=== PATIENT | male | born 1955 | race Caucasian/White ===

== ENCOUNTER 2017-01-12 06:37 | Inpatient (IN) ==
--- NOTE | 2017-01-11 21:31 | Discharge Summary ---
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 Qualified Code(s): E11.9 - Type 2 diabetes mellitus without complications (4) HTN (hypertension) Priority: Secondary Status: Chronic Qualifiers: Hypertension type: essential hypertension Qualified Code(s): I10 - Essential (primary) hypertension (5) BPH (benign prostatic hyperplasia) Priority: Secondary Status: Chronic Qualifiers: Lower urinary tract symptom presence: unspecified whether lower urinary tract symptoms present Qualified Code(s): N40.0 - Benign prostatic hyperplasia without lower urinary tract symptoms - Discharge Medications Home Medications: OxyCODONE Immed Rel [Roxicodone 5 MG] 5 - 10 mg PO Q6HR PRN #40 tablet 01/11/17 [Rx] Acyclovir [Zovirax] 200 mg PO BID 01/12/17 [History] Amlodipine Besylate 10 mg PO DAILY 01/12/17 [History] Atenolol [Tenormin] 50 mg PO HS 01/12/17 [History] Etodolac 400 mg PO BID 01/12/17 [History] Gabapentin [Neurontin] 300 mg PO TID 01/12/17 [History] GlipiZIDE [Glipizide Xl] 5 mg PO DAILY 01/12/17 [History] Metformin HCl [Glucophage] 1,000 mg PO BID 01/12/17 [History] Multivitamin [Multi-Day Vitamins] 2 tab PO DAILY 01/12/17 [History] Omeprazole [PriLOSEC] 20 mg PO DAILY 01/12/17 [History] Oxybutynin Chloride [Ditropan Xl] 10 mg PO HS 01/12/17 [History] Valsartan/Hydrochlorothiazide [Diovan Hct 160-25 mg Tablet] 1 tab PO DAILY 01/12 [History] Allergies/Adverse Reactions: 3 Allergy/AdvReac Type Severity Reaction Status Date / Time No Known Allergies Allergy Verified 01/12/17 07:35 Primary care physician: Steve Ruiz Jr, MD - Patient Status Disposition: Home, Self-Care Condition: Good - Discharge Instructions Follow Up With: Steve Ruiz Jr, MD [Primary Care Provider] - - Hospital Course Hospital course: Mr. Marx is a 61 year old male - Time Spent with Patient Total time spent providing and/or coordinating discharge services: <SlaughterJohan - Last Filed: 01/13/17 06:50> Date of Encounter: 01/13/17 Time of Encounter: 06:49 - Discharge Diagnosis (1) Obesity (BMI 35.0-39.9 without comorbidity) Priority: Secondary Status: Chronic (2) Rotator cuff tear arthropathy of right shoulder Priority: Primary Status: Chronic (3) Status post total replacement of right shoulder Priority: Primary Status: Acute (4) DMII (diabetes mellitus, type 2) Status: Chronic Qualifiers: Diabetes mellitus complication status: without complication Diabetes mellitus half-way insulin use: without half-way use Qualified Code(s): E11.9 - Type 2 diabetes mellitus without complications (5) HTN (hypertension) Status: Chronic Qualifiers: Hypertension type: essential hypertension Qualified Code(s): I10 - Essential (primary) hypertension (6) BPH (benign prostatic hyperplasia) Status: Chronic Qualifiers: Lower urinary tract symptom presence: unspecified whether lower urinary tract symptoms present Qualified Code(s): N40.0 - Benign prostatic hyperplasia without lower urinary tract symptoms Primary care physician: Steve Ruiz Jr, MD - Patient Status Functional capacity at discharge: uses cane/walker Overall status at discharge: patient is progressing back to baseline - Hospital Course Hospital course: Mr. Marx is a 61 year old male Status post right total shoulder replacement. The patient had an uneventful postoperative course. They received antibiotics and physical therapy and were discharged in stable condition. There will follow -up in the office in 2 weeks. - Time Spent with Patient Total time spent providing and/or coordinating discharge services:
--- NOTE | 2017-01-12 06:15 | History & Physical Report ---
Date of Encounter: 01/12/17 Time of Encounter: 06:15 24 Hour HP Update - Instructions Instructions: If the History and Physical is less than 30 days old and was completed prior to A.M. admission and or procedure and has NOT been updated on calendar day of procedure please complete this update prior to performing procedure. - Update Patient reports changes in Medical Condition: No Changes in examination, assessment, or condition: No Changes in Medication: No Preop tests/diagnostics Reviewed: Yes Surgery Remains Indicated: Yes Consent for Planned Operative Procedure(s) Verified: Yes - Pre-Operative Checklist Preoperative Checklist Indicated: No Prophylactic Antibiotic Ordered: Yes Is VTE Prophylaxis Indicated?: Yes
[2017-01-12] MEDS ORDERED: Lidocaine -MPF 1% 2 ML VIAL ONE (06:51)
--- NOTE | 2017-01-12 07:02 | Anesthesia Evaluation PreOp ---
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: Denies Any Significant HX Other Medical History: Diabetes Type II, GERD Anesthesia History: No Prior Anesthetic Complications, Past Anesthesia (CTR, RCR , Bicep repair, Skin CA) Alcohol Use: none Drug use: none Medications and Allergies Acyclovir 08/09/16 [History] Alfuzosin HCl 08/09/16 [History] Amlodipine 08/09/16 [History] Amoxicillin 875 mg PO BID #20 tablet 08/09/16 [Rx] Atenolol 08/09/16 [History] Benzonatate [Tessalon] 200 mg PO TID PRN #20 capsule 08/09/16 [Rx] Fluticasone Propionate Nasal [Flonase] 2 spray NS DAILY #1 bottle 08/09/16 [Rx] Glipizide 08/09/16 [History] Glucosamine 08/09/16 [History] Omeprazole 08/09/16 [History] Oxybutynin 08/09/16 [History] Valsartan 08/09/16 [History] OxyCODONE Immed Rel [Roxicodone 5 MG] 5 - 10 mg PO Q6HR PRN #40 tablet 01/11/17 [Rx] 3 Allergy/AdvReac Type Severity Reaction Status Date / Time No Known Allergies Allergy Verified 01/12/17 07:35 - Meds/Allergy Pre-op Review Medications Reviewed: Yes Allergies Reviewed: Yes Beta Blockers on Current Med List: Yes If Beta Blockers taken, Date/Time (Last Dose taken): 01/11/2017 @ 22:30 Anesthesia Results - Labs Laboratory Tests 01/05/17 01/05/17 01/05/17 16:44 16:44 16:44 WBC 10.8 Hgb 15.5 Hct 47.6 MCV 85.9 Plt Count 217 INR 1.0 Sodium 144 Potassium 3.7 Chloride 104 Carbon Dioxide 27 BUN 18 Creatinine 0.82 - Imaging EKG: image reviewed (SINUS RHYTHM WITH OCCASIONAL VENTRICULAR PREMATURE COMPLEXES) Anesthesia Exam O2 Sat Height 1.65 m Height 1.65 m Height 1.65 m Weight 99.79 kg Weight 99.79 kg Weight 99.79 kg O2 Sat by Pulse Oximetry 93 O2 Sat by Pulse Oximetry 93 Vital Signs Temp Pulse Resp BP Pulse Ox 98.3 F 65 18 157/90 93 01/12/17 07:14 01/12/17 07:14 01/12/17 07:14 01/12/17 07:14 01/12/17 07:14 Height: 5'5'' Weight: 220# NPO (# of Hours): > 8 hrs Pain Scale: 0 Pain Scale Used: Numeric (1 - 10) - HEENT Pupil (Motor): Pupils equal, EOMI Mallampati: III Teeth: Normal Oral Opening: Greater than 3 - TOY ASSEMBLY SUPERVISOR LOC: Oriented TOY ASSEMBLY SUPERVISOR Motor: Normal RUE, Normal LUE, Normal RLE, Normal LLE, Normal Face TOY ASSEMBLY SUPERVISOR Sensory: Normal: RUE, LUE, RLE, LLE, Face - Cardiac Rhythm: Regular Murmur: None JVD: No Carotid Bruit: No - Pulmonary Breath Sounds: bilateral Clear Respiratory Effort: Symmetrical Anesthesia Assess/Plan ASA Score: 3 Modified Deepa Scale for Level of Consciousness: Cooperative, oriented, and tranquil Anesthetic Plan: General, Regional (Right Brachial Plexus Block) Autologous Blood: Yes Monitoring Plan: Standard Monitors Recovery Plan: PACU
[2017-01-12] MEDS ORDERED: CeFAZolin Pre 2,000 MG/100 ML 2,000 MG/100 ML BAG IVPB ONE (07:10)
[2017-01-12] MEDS ORDERED: Ringers Solution, Lactated 1,000 ML IVC SCH ×3 (07:15→09:43)
[2017-01-12] MEDS ORDERED: Lidocaine -MPF 2% 2 ML VIAL ONE (07:17)
[2017-01-12] MEDS ORDERED: *HR* Midazolam HCl 2 MG/2 ML VIAL ONE (07:17)
[2017-01-12] MEDS ORDERED: Dexamethasone 4 MG/ML VIAL ONE (07:17)
[2017-01-12] MEDS ORDERED: *HR* Succinylcholine 200 MG/10 ML VIAL IVP ONE (07:17)
[2017-01-12] MEDS ORDERED: Ondansetron 4 MG/2 ML VIAL ONE (07:17)
[2017-01-12] MEDS ORDERED: *HR* FentaNYL (PF) 100 MCG/2 ML VIAL ONE (07:17)
[2017-01-12] MEDS ORDERED: *HR* Propofol 200 MG/20 ML VIAL IVP ONE (07:18)
[2017-01-12] MEDS ORDERED: Lidocaine -MPF 4% 5 ML AMPUL ONE (07:22)
[2017-01-12] MEDS ORDERED: ROPIVACAINE HCL/PF 0.5% 30 ML VIAL ONE (07:26)
[2017-01-12] MEDS ORDERED: Bupivacaine/Clonidine Syringe 1 EACH SYRINGE ONE (07:27)
[2017-01-12] MEDS ORDERED: *HR* HYDROmorphone (PF) 1 MG/ML SYRINGE IVP PRN ×2 (07:56→09:43)
[2017-01-12] MEDS ORDERED: Ondansetron 4 MG/2 ML VIAL IVP ONE (07:56)
[2017-01-12] MEDS ORDERED: *HR* Labetalol 20 MG/4 ML SYRINGE IVP PRN (07:56)
[2017-01-12] MEDS ORDERED: *HR* Promethazine 25 MG/ML VIAL IVP PRN (07:56)
--- NOTE | 2017-01-12 08:02 | Anesthesia Procedures ---
Date of Encounter: 01/12/17 Time of Encounter: 07:35 Procedures: Anesthesia - Nerve Block Procedure Date: 01/12/17 Time: 07:35 Allergies/Adv Reactions: NKA Pre-op Diagnosis: Right rotator cuff arthropathy Surgical Procedure: Right total shoulder replacement, reverse Checklist: Correct Patient Identifier (pl), Correct procedure, History checked Correct side: Right Blood Thinner: No Monitor Applied: EKG, BP, Pulse Oximetry Supplemental Oxygen via Nasal Cannula (L/min): 2 Sedation: Versed (mg): 2 Sedation: Fentanyl (mcg): 100 Indication: Post Op Analgesia Pre-op Neuro Deficits: No Block Type: Infraclavicular, Supraclavicular, Other (SCP, ICB) Catheter placed: No Sterile Technique: Yes Ultrasound used: Yes Anatomy identified: Yes Visual spread of Local: Yes Neuro Stimulation: No Blood on Needle Aspiration: No Smooth Injection of Local: Yes Pain with Injection of Local: No Prep: Chlorhexadine Needle: 22 x 50 mm Stimuplex Local: 0.25% Bupivicaine w/Clonidine 20 mcg/cc (SCP, ICB 15ml), Ropivacaine (0.5 % 30ml superclavicular) Volume (cc): 45 Number of Attempts: 1 Complications: None/effective block Vitals: Vital Signs Temperature 98.3 F 01/12/17 07:14 Pulse Rate 65 01/12/17 07:14 Respiratory Rate 18 01/12/17 07:14 Blood Pressure 157/90 01/12/17 07:14 O2 Sat by Pulse Oximetry 93 01/12/17 07:14 Temperature 98.3 F 01/12/17 07:35 Pulse Rate 66 01/12/17 07:43 Respiratory Rate 16 01/12/17 07:43 Blood Pressure 146/78 01/12/17 07:43 O2 Sat by Pulse Oximetry 94 01/12/17 07:43
--- NOTE | 2017-01-12 08:24 | Orthopedic Operative Note ---
Date of procedure: 01/12/17 Pre-op diagnosis: Right shoulder rotator cuff tear arthropathy Post-op diagnosis: same Procedure: Procedure: Total Shoulder Replacment Reverse, right Estimated blood loss: 100 cc Hardware: Metal and polyethylene replacement: Arthrex large glenoid baseplate, 2 4.5 screws. 1 6.5 screw, 2+4 glenosphere, 11 humeral stem, poly insert 3 Exam Under anesthesia: Full motion and no stability Procedural Notes: Irreparable tear supraspinatus and subscapularis. Operative procedure: The patient was brought to the operating room and placed on the operating room table. After general anesthesia was administered the operative shoulder was examined. Findings were noted. The patient was placed in the modified beachchair position. All pressure points were padded appropriately. And the head was stabilized in the neutral position. The operative extremity was prepped and draped in the sterile surgical fashion. The patient received IV antibiotics prior to skin incision. A standard deltopectoral approach was made to the operative shoulder. Incision was made to the skin and subcutaneous tissue,hemo stasis was obtained with Bovie cautery. Using careful blunt dissection the cephalic vein was identified and mobilized medially. The deltopectoral interval was developed and the clavipectoral fascia was incised. The subscap was normal. The humerus was dislocated patient noted to have irreparable tear supraspinatus tendon, and the humeral cut was made along the anatomic neck. Anterior and posterior Bankart retractors were placed to expose the glenoid. The glenoid guide was seated and the centering hole was made. It was reamed with the appropriate reamer. The large baseplate was seated and secured with (2) 4.5 screws and one 6.5 screw. The baseplate was irrigated and dried and the 42+4 Glenosphere was seated and secured with the Sandra taper. The Sandra taper was tested and found to be secure the humerus was redislocated and prepared with the diaphyseal reamers, followed by a broaching process up to the appropriate size 11 in the patient's anatomic version. The metaphyseal reamer was then utilized. Trial reduction found the shoulder to be relocatable. Trial components were removed and the 11 stem was impacted in place in the patient's anatomic version. Trial reduction found the shoulder to be relocatable and stable with the appropriate 3. Trial component was removed and the real 3 Radha was seated and secured the shoulder was reduced. The shoulder had excellent motion and excellent stability and no evidence of dislocation. The deep tissue was irrigated with pulse irrigation. The PA closed the shoulder The deltopectoral interval was closed with a running #1 PDS suture, subcutaneous tissue was irrigated and closed with 0 PDS suture, the skin was closed with Dermabond. The patient was placed in a sterile dressing, abduction brace and extubated. The patient was then transferred to the recovery room in stable condition. Anesthesia: ZEYNEP Surgeon: Johan Slaughter Circulator: Lacey Casas Condition: stable Disposition: PACU
[2017-01-12 09:09] LABS: Hematocrit 44.5 % (37.5-50.1); Hemoglobin 14.1 g/dL (12.9-16.9)
--- NOTE | 2017-01-12 09:11 | Anesthesia Evaluation Post Op ---
Date of Encounter: 01/12/17 Time of Encounter: 09:11 - Vital Signs Vital Signs: Vital Signs/O2 Sat, Most Current Temp Pulse Resp BP Pulse Ox 97.4 F L 57 18 125/65 92 01/12/17 08:43 01/12/17 09:03 01/12/17 09:03 01/12/17 09:03 01/12/17 09:03 - Lungs Lungs: Clear Ascult./Percussion - Airway Airway: Non-obstructed - Cardiovascular Regular Rate - Mental Status Mental Status: Alert & Oriented, Answers Appropriately - Pain Pain Scale: 0 Pain Scale used: Numeric (1 - 10) - Nausea Vomiting Nausea Vomiting: Not Present - Hydration Hydration: NPO, Has not voided - Discharge PostOp Status: Transfer Patient to floor
[2017-01-12] MEDS ORDERED: Dextrose Gel 15 GM PO PRN ×2 (09:43)
[2017-01-12] MEDS ORDERED: ceFAZolin 2,000 MG in D5% in Water 100 ML IVPB SCH (09:43)
[2017-01-12] MEDS ORDERED: Sennosides 8.6 MG TABLET PO PRN (09:43)
[2017-01-12] MEDS ORDERED: D5% in Water 1,000 ML IVC PRN (09:43)
[2017-01-12] MEDS ORDERED: *HR* OxyCODONE Immed Rel 5 MG TABLET PO PRN ×2 (09:43)
[2017-01-12] MEDS ORDERED: *HR* Dextrose 50 % in Water (Syg) 50 ML SYRINGE IVP PRN (09:43)
[2017-01-12] MEDS ORDERED: Ondansetron 4 MG/2 ML VIAL IVP PRN (09:43)
[2017-01-12] MEDS ORDERED: MOM Conc 10 ML UD.LIQ PO PRN (09:43)
[2017-01-12] MEDS ORDERED: Naloxone 0.4 MG/ML INJ IVP PRN (09:43)
[2017-01-12] MEDS: Insulin LISPRO 300 UNITS/3 ML VIAL SQ SCH ×2 (13:24→16:52)
[2017-01-12] MEDS: amLODIPine 5 MG TABLET PO SCH (13:36)
[2017-01-12] MEDS: ceFAZolin 2,000 MG in D5% in Water 100 ML IVPB SCH ×2 (13:36→23:16)
[2017-01-12] MEDS: *HR* Metformin 500 MG TABLET PO SCH ×2 (13:38→20:16)
[2017-01-12] MEDS: *HR* GlipiZIDE XL (24 HR) 2.5 MG TABLET PO SCH (13:38)
[2017-01-12] MEDS: Valsartan 160 MG TABLET PO SCH (13:38)
[2017-01-12] MEDS: hydroCHLOROthiazide 25 MG TABLET PO SCH (13:38)
[2017-01-12] MEDS: Gabapentin 300 MG CAPSULE PO SCH ×3 (13:39→20:16)
[2017-01-12] MEDS: Multivit/Ca/Min/Fe/FA 1 TAB TABLET PO SCH (13:39)
[2017-01-12] MEDS: Acyclovir 200 MG CAPSULE PO SCH ×2 (15:52→20:16)
[2017-01-12] MEDS: *HR* Enoxaparin 30 MG/0.3 ML SYRINGE SQ SCH (16:53)
[2017-01-12] MEDS ORDERED: *HR* Enoxaparin 40 MG/0.4 ML SYRINGE SQ SCH (18:00)
[2017-01-12] MEDS ORDERED: Insulin LISPRO 300 UNITS/3 ML VIAL SQ SCH (21:00)
[2017-01-12] MEDS ORDERED: Temazepam 15 MG CAPSULE PO PRN (21:00)
[2017-01-13] MEDS: *HR* Enoxaparin 30 MG/0.3 ML SYRINGE SQ SCH (05:33)
--- NOTE | 2017-01-13 06:50 | Orthopedics Progress Note ---
Date of Encounter: 01/13/17 Time of Encounter: 06:50 - Assessment and Plan (1) Obesity (BMI 35.0-39.9 without comorbidity) Current Visit: Yes Status: Chronic (2) Rotator cuff tear arthropathy of right shoulder Current Visit: Yes Status: Chronic (3) Status post total replacement of right shoulder Current Visit: Yes Status: Acute (4) DMII (diabetes mellitus, type 2) Current Visit: Yes Status: Chronic Qualifiers: Diabetes mellitus complication status: without complication Diabetes mellitus intermediate accountant insulin use: without custodial use Qualified Code(s): E11.9 - Type 2 diabetes mellitus without complications (5) HTN (hypertension) Current Visit: Yes Status: Chronic Qualifiers: Hypertension type: essential hypertension Qualified Code(s): I10 - Essential (primary) hypertension (6) BPH (benign prostatic hyperplasia) Current Visit: Yes Status: Chronic Qualifiers: Lower urinary tract symptom presence: unspecified whether lower urinary tract symptoms present Qualified Code(s): N40.0 - Benign prostatic hyperplasia without lower urinary tract symptoms Subjective Interval history: Patient was seen this morning doing well without complaints. Afebrile vital signs stable. Operative extremity: Neurovascularly intact Dressing clean dry and intact Calves nontender Assessment and plan: Continue with postoperative care Hematocrit 44 discharged today Objective Vital signs: Vital Signs Temp Pulse Resp BP Pulse Ox 01/13/17 04:02 97.8 F 70 16 147/76 96 01/12/17 23:57 98.5 F 70 16 107/63 96 01/12/17 20:11 99.4 F 94 18 151/70 95 01/12/17 13:20 98.8 F 79 16 125/71 922 01/12/17 11:45 98.5 F 56 16 156/77 91 01/12/17 10:40 97.9 F 59 16 126/66 91 01/12/17 10:16 98.1 F 57 18 122/66 92 01/12/17 09:47 97.7 F 56 16 122/72 91 01/12/17 09:13 97.2 F L 59 20 128/70 92 01/12/17 09:03 57 18 125/65 92 01/12/17 08:53 55 20 101/70 96 01/12/17 08:43 97.4 F L 66 20 111/71 93 01/12/17 07:43 66 16 146/78 94 01/12/17 07:37 62 16 157/87 96 01/12/17 07:35 98.3 F 65 18 157/90 93 01/12/17 07:14 98.3 F 65 18 157/90 93 Intake and Output 01/12/17 01/12/17 01/13/17 15:59 23:59 07:59 Intake Total 200 / 200 360 / 360 200 / 200 Output Total 100 / 100 150 / 150 Balance 100 / 100 210 / 210 200 / 200 Intake: IV Fluids 200 / 200 100 / 100 Ancef Premix 2,000 MG/100 100 / 100 ML 2,000 mg In 100 ml @ 200 mls/hr IVPB PREOP ONE Rx#:[id number] Ancef 2,000 MG In 100 / 100 100 / 100 Dextrose 5% 100 ML @ 200 mls/hr IVPB Q8HR JIL Rx#: [id number] Oral 360 / 360 100 / 100 Output: Urine 150 / 150 Estimated Blood Loss 100 / 100 Other: Meal Dinner Percent of Meal Consumed 100% # Voids 1 1 Weight 101.05 kg Blood Glucose* 235 252 Patient Weight 01/13/17 23:59 Weight 101.05 kg - Labs CBC & BMP: 01/12/17 08:58 Labs: Abnormal lab results POC Glucose 235 (58-89) H 01/12/17 13:16 - VTE Documentation of Mechanical Device: Venous foot pump, device Consult Discharge Plan - Plan Referrals: Steve Ruiz Jr, MD [Primary Care Provider] -
[2017-01-13 08:11] LABS: Hematocrit 44.7 % (37.5-50.1)
[2017-01-13] MEDS: amLODIPine 5 MG TABLET PO SCH (08:17)
[2017-01-13] MEDS: *HR* GlipiZIDE XL (24 HR) 2.5 MG TABLET PO SCH (08:18)
[2017-01-13] MEDS: Multivit/Ca/Min/Fe/FA 1 TAB TABLET PO SCH (08:18)
[2017-01-13] MEDS: hydroCHLOROthiazide 25 MG TABLET PO SCH (08:18)
[2017-01-13] MEDS: *HR* Metformin 500 MG TABLET PO SCH (08:18)
[2017-01-13] MEDS: Acyclovir 200 MG CAPSULE PO SCH (08:18)
[2017-01-13] MEDS: Insulin LISPRO 300 UNITS/3 ML VIAL SQ SCH (08:19)
[2017-01-13] MEDS: Gabapentin 300 MG CAPSULE PO SCH (08:21)
[2017-01-13] MEDS: Valsartan 160 MG TABLET PO SCH (08:21)
[2017-01-13 12:23] VITALS: BP 151/68
--- NOTE | 2017-01-13 12:26 | Event Note ---
Date of Encounter: 01/13/17 Time of Encounter: 12:25 PCR - Right TSR-reverse - 01/12/17 POD#1 Patient seen at bedside. Comorbidities: HTN, DMII, BPH Labs: Stable Pain control: adequate Participating in PT. All questions and concerns addressed. Educated on use of incentive spirometer, ambulation, and hydration. Patient educated on post-operative restrictions and care. Addressed: Discharge plans D/C plan:. Home 01/13 OP
== END 2017-01-13 13:48 | disposition home or self-care (01) | DRG 483 ==
LOC: SAMDAY 06:37 → 3NENU 09:19
PROVIDERS: ADMIT Orthopaedic Surgery; ATTEND Orthopaedic Surgery

== ENCOUNTER 2019-02-28 18:48 | Observation (INO) ==
[2019-02-28 21:08] LABS: Basophils # 0.1 K/mcL (0.0-0.2); Eosinophils # 0.3 K/mcL (0.0-0.6); Eosinophils % 2.7 %; Hematocrit 44.9 % (37.5-50.1); Hemoglobin 14.9 g/dL (12.9-16.9); Immature Granulocytes % 0.3 % (0-4); Lymphocytes # 2.7 K/mcL (0.6-4.6); Lymphocytes % 25.8 %; Mean Corpuscular HGB Conc 33.2 g/dL (31.6-35.5); Mean Corpuscular Hemoglobin 28.5 pg (28.0-33.3); Mean Platelet Volume 11.5 fL (9.4-12.4); Monocytes # 1.1 K/mcL (0.0-1.3); Monocytes % 10.1 %; Neutrophils # 6.3 K/mcL (1.6-8.9); Platelet Count 264 K/mcL (140-400); Red Blood Count 5.22 M/mcL (4.19-5.50); Red Cell Distribution Width 15.3 % (11.5-14.5); Segmented Neutrophils % 60.1 %; White Blood Count 10.4 K/mcL (4.3-11.1)
[2019-02-28 21:11] LABS: Prothrombin Time 11.7 Seconds (9.4-12.1)
[2019-02-28 21:13] LABS: Activated Partial Thrombo Time 31.5 Seconds (26.0-36.0)
[2019-02-28 21:25] LABS: BUN/Creatinine Ratio 16 (6-26); Blood Urea Nitrogen 14 mg/dL (8-23); Calcium 9.3 mg/dL (8.6-10.3); Carbon Dioxide 26 mEq/L (23-29); Chloride 106 mEq/L (98-107); Glucose 98 mg/dL (70-105); Osmolality,Calculated 298 (280-300); Potassium 3.5 mEq/L (3.5-5.1); Sodium 144 mEq/L (136-145); eGFR For African Americans > 60 (> 60); eGFR For Non-African Americans > 60 (> 60)
[2019-02-28 21:31] LABS: Troponin I 0.04 ng/mL (< 0.04)
[2019-02-28] MEDS ORDERED: Aspirin 81 MG TAB.CHEW PO STA (21:43)
[2019-02-28] MEDS ORDERED: Isovue-370 500 ML BOTTLE IVP ONE (21:53)
[2019-02-28] MEDS ORDERED: Nitroglycerin 0.4 MG TAB.SUBL SL PRN (21:53)
[2019-02-28] MEDS ORDERED: *HR* Heparin 5,000 UNIT/ML VIAL IVP PRN ×2 (22:53)
[2019-02-28] MEDS ORDERED: *HR* Heparin 5,000 UNIT/ML VIAL IVP ONE (22:53)
[2019-02-28] MEDS ORDERED: Heparin 25,000 UNIT/250 ML D5W 25,000 UNIT/250 ML IV.SOLN IVC SCH (23:00)
[2019-02-28 23:16] LABS: Hematocrit 45.7 % (37.5-50.1); Hemoglobin 14.9 g/dL (12.9-16.9); Mean Corpuscular HGB Conc 32.6 g/dL (31.6-35.5); Mean Corpuscular Hemoglobin 28.1 pg (28.0-33.3); Mean Corpuscular Volume 86.2 fL (83.0-100.0); Mean Platelet Volume 10.9 fL (9.4-12.4); Platelet Count 259 K/mcL (140-400); Red Cell Distribution Width 15.3 % (11.5-14.5); White Blood Count 10.7 K/mcL (4.3-11.1)
[2019-02-28 23:25] LABS: Prothrombin Time 11.8 Seconds (9.4-12.1)
[2019-03-01] MEDS ORDERED: Naloxone 0.4 MG/ML INJ IVP PRN (03:10)
[2019-03-01] MEDS ORDERED: D5% in Water 1,000 ML IVC PRN (03:13)
[2019-03-01] MEDS ORDERED: *HR* Dextrose 50 % in Water (Syg) 50 ML SYRINGE IVP PRN (03:13)
[2019-03-01] MEDS ORDERED: Dextrose Gel 15 GM/37.5 ML TUBE PO PRN ×2 (03:13)
[2019-03-01] MEDS: Insulin LISPRO 300 UNITS/3 ML VIAL SQ SCH ×3 (05:47→18:22)
[2019-03-01 08:12] LABS: Hemoglobin 15.1 g/dL (12.9-16.9); Mean Corpuscular HGB Conc 32.8 g/dL (31.6-35.5); Mean Corpuscular Hemoglobin 28.9 pg (28.0-33.3); Mean Corpuscular Volume 88.1 fL (83.0-100.0); Mean Platelet Volume 11.3 fL (9.4-12.4); Platelet Count 244 K/mcL (140-400); Red Blood Count 5.22 M/mcL (4.19-5.50); Red Cell Distribution Width 15.3 % (11.5-14.5); White Blood Count 10.7 K/mcL (4.3-11.1)
[2019-03-01 08:37] LABS: BUN/Creatinine Ratio 13 (6-26); Blood Urea Nitrogen 11 mg/dL (8-23); Carbon Dioxide 29 mEq/L (23-29); Chloride 105 mEq/L (98-107); Glucose 115 mg/dL (70-105); Osmolality,Calculated 296 (280-300); Potassium 3.1 mEq/L (3.5-5.1); Sodium 143 mEq/L (136-145); eGFR For African Americans > 60 (> 60); eGFR For Non-African Americans > 60 (> 60)
[2019-03-01] MEDS ORDERED: Furosemide 20 MG TABLET PO PRN (11:54)
[2019-03-01] MEDS: amLODIPine 5 MG TABLET PO SCH (12:20)
[2019-03-01] MEDS: Aspirin Enteric Coated 81 MG Tablet PO SCH (12:20)
[2019-03-01] MEDS: Isosorbide MONOnitrate (24 HR) 30 MG TAB.ER.24H PO SCH (12:21)
[2019-03-01] MEDS ORDERED: Perflutren Lipid Microsphere 1.3 ML in 0.9 % Sodium Chloride 8.7 ML IVP ONE (13:32)
[2019-03-01] MEDS ORDERED: Perflutren Lipid Microsphere 2 ML VIAL ONE (13:34)
[2019-03-01] MEDS: Gabapentin 300 MG CAPSULE PO SCH (20:12)
[2019-03-02] MEDS ORDERED: Insulin LISPRO 300 UNITS/3 ML VIAL SQ SCH ×2 (00:39→07:30)
[2019-03-02] MEDS: Insulin LISPRO 300 UNITS/3 ML VIAL SQ SCH (00:41)
[2019-03-02 04:50] LABS: Hematocrit 45.4 % (37.5-50.1); Hemoglobin 14.5 g/dL (12.9-16.9); Mean Corpuscular HGB Conc 31.9 g/dL (31.6-35.5); Mean Corpuscular Hemoglobin 27.8 pg (28.0-33.3); Mean Corpuscular Volume 87.1 fL (83.0-100.0); Platelet Count 255 K/mcL (140-400); Red Blood Count 5.21 M/mcL (4.19-5.50); Red Cell Distribution Width 15.2 % (11.5-14.5); White Blood Count 10.9 K/mcL (4.3-11.1)
[2019-03-02 05:12] LABS: BUN/Creatinine Ratio 15 (6-26); Blood Urea Nitrogen 15 mg/dL (8-23); Calcium 8.9 mg/dL (8.6-10.3); Carbon Dioxide 27 mEq/L (23-29); Chloride 108 mEq/L (98-107); Glucose 122 mg/dL (70-105); Osmolality,Calculated 296 (280-300); Sodium 142 mEq/L (136-145); eGFR For African Americans > 60 (> 60); eGFR For Non-African Americans > 60 (> 60)
[2019-03-02 06:29] VITALS: BP 138/70
[2019-03-02] MEDS: Gabapentin 300 MG CAPSULE PO SCH (08:25)
[2019-03-02] MEDS: amLODIPine 5 MG TABLET PO SCH (08:26)
[2019-03-02] MEDS: Aspirin Enteric Coated 81 MG Tablet PO SCH (08:26)
[2019-03-02] MEDS: Isosorbide MONOnitrate (24 HR) 30 MG TAB.ER.24H PO SCH (08:26)
[2019-03-02] MEDS ORDERED: FLU Vac QV 19-20 (6Month+)/PF 0.5 ML SYRINGE IM ONE (09:37)
== END 2019-03-02 11:23 | disposition home or self-care (01) ==
LOC: EMEROOARM 18:48 → 2ANU 18:48 → SUATTDRO 03-01 00:01 → 2ANU 03-01 00:28
PROVIDERS: ADMIT Internal Medicine; ATTEND Family Medicine

== ENCOUNTER 2021-07-26 15:26 | Inpatient (IN) ==
[2021-07-26 16:05] LABS: Basophils # 0.1 K/mcL (0.0-0.2); Basophils % 0.5 %; Eosinophils # 0.3 K/mcL (0.0-0.6); Eosinophils % 2.7 %; Hematocrit 41.1 % (37.5-50.1); Hemoglobin 12.3 g/dL (12.9-16.9); Immature Granulocytes % 0.3 % (0-4); Lymphocytes # 2.5 K/mcL (0.6-4.6); Lymphocytes % 23.2 %; Mean Corpuscular HGB Conc 29.9 g/dL (31.6-35.5); Mean Corpuscular Hemoglobin 26.2 pg (28.0-33.3); Mean Corpuscular Volume 87.4 fL (83.0-100.0); Mean Platelet Volume 12.8 fL (9.4-12.4); Monocytes % 9.1 %; Platelet Count 182 K/mcL (140-400); Red Cell Distribution Width 16.9 % (11.5-14.5); Segmented Neutrophils % 64.2 %; White Blood Count 10.9 K/mcL (4.3-11.1)
[2021-07-26 16:13] LABS: INR 1.6; Prothrombin Time 17.4 Seconds (9.4-12.1)
[2021-07-26] MEDS ORDERED: *HR* Metoprolol 5 MG/5 ML VIAL IVP ONE (16:13)
[2021-07-26 16:16] LABS: Activated Partial Thrombo Time 33.3 Seconds (26.0-36.0)
[2021-07-26 16:29] LABS: Alanine Aminotransferase 33 Units/L (7-52); Albumin 3.7 g/dL (3.5-5.7); Albumin/Globulin Ratio 1.5 (1.1-2.2); Alkaline Phosphatase 47 Units/L (34-104); Aspartate Amino Transferase 16 Units/L (13-39); BUN/Creatinine Ratio 20 (6-26); Bilirubin,Direct 0.1 mg/dL (0.0-0.2); Bilirubin,Indirect 0.5 mg/dL (0.0-1.0); Bilirubin,Total 0.6 mg/dL (0.3-1.0); Blood Urea Nitrogen 39 mg/dL (8-23); Calcium 8.8 mg/dL (8.6-10.3); Carbon Dioxide 27 mEq/L (23-29); Chloride 107 mEq/L (98-107); Globulin 2.5 g/dL (2.4-3.5); Glucose 191 mg/dL (70-105); Magnesium 1.8 mg/dL (1.6-2.6); Osmolality,Calculated 309 (280-300); Potassium 4.5 mEq/L (3.5-5.1); Sodium 142 mEq/L (136-145); Total Protein 6.2 g/dL (6.4-8.9); Troponin I < 0.03 ng/mL (< 0.04); eGFR For African Americans 43 (> 60); eGFR For Non-African Americans 35 (> 60)
[2021-07-26] MEDS ORDERED: Amiodarone Premix 360 MG/200 ML BAG IVC ONE (17:02)
[2021-07-26] MEDS ORDERED: Amiodarone Premix 150 MG/100 ML BAG IVPB ONE (17:02)
[2021-07-26] MEDS ORDERED: *HR* Heparin 5,000 UNIT/ML VIAL IVP ONE (17:51)
[2021-07-26] MEDS ORDERED: *HR* Promethazine 25 MG/ML VIAL IM PRN (17:51)
[2021-07-26] MEDS ORDERED: Naloxone 0.4 MG/ML INJ IVP PRN (17:51)
[2021-07-26] MEDS ORDERED: *HR* Heparin 5,000 UNIT/ML VIAL IVP PRN ×2 (17:51)
[2021-07-26] MEDS ORDERED: MOM Conc 10 ML UD.LIQ PO PRN (17:51)
[2021-07-26] MEDS ORDERED: Furosemide 40 MG/4 ML VIAL IVP ONE (17:52)
[2021-07-26] MEDS ORDERED: Heparin 25,000UNIT/250ML 1/2NS 25,000 UNIT/250 ML IV.SOLN IVC SCH ×2 (18:00→18:15)
[2021-07-26] MEDS ORDERED: *HR* Digoxin 0.5 MG/2 ML AMPUL IVP ONE (18:00)
[2021-07-26 18:13] LABS: Phosphorous 3.7 mg/dL (2.7-4.5)
[2021-07-26] MEDS ORDERED: D5% in Water 1,000 ML IVC PRN (19:15)
[2021-07-26] MEDS ORDERED: Dextrose 4 GM Chewable Tablets PO PRN ×2 (19:15)
[2021-07-26] MEDS ORDERED: *HR* Dextrose 50 % in Water (Syg) 50 ML SYRINGE IVP PRN (19:15)
[2021-07-26] MEDS ORDERED: Perflutren Lipid Microsphere 1.3 ML in 0.9 % Sodium Chloride 8.7 ML IVP PRN (19:15)
[2021-07-26] MEDS: Insulin LISPRO 300 UNITS/3 ML VIAL SUBQ SCH (21:37)
[2021-07-26] MEDS: Aspirin 81 MG TAB.CHEW PO SCH (21:37)
[2021-07-26] MEDS: Apixaban 5 MG TABLET PO SCH (21:37)
[2021-07-26 22:24] LABS: Estimated Average Glucose 189 mg/dl; Hemoglobin A1C 8.2 %
[2021-07-26] MEDS: Amiodarone Premix 360 MG/200 ML BAG IVC SCH (23:00)
[2021-07-27 00:53] LABS: Bilirubin,Urine Negative (Negative); Blood,Urine Negative (Negative); Clarity,Urine Clear (Clear); Color,Urine Light-Yellow (Yellow); Glucose,Urine (UA) Normal (Normal); Ketones,Urine Negative (Negative); Leukocyte Esterase,Urine Negative (Negative); Nitrite,Urine Negative (Negative); PH,Urine 5.5 pH Units (5.0-8.0); Protein,Urine Trace mg/dL (Neg-Trace); Specific Gravity,Urine 1.019 (1.010-1.025); Urobilinogen,Urine Normal (Normal)
[2021-07-27] MEDS: Amiodarone Premix 360 MG/200 ML BAG IVC SCH ×2 (00:54→09:41)
[2021-07-27 01:04] LABS: Sodium, Urine 17.9 mEq/L
[2021-07-27 02:53] LABS: Hematocrit 40.2 % (37.5-50.1); Hemoglobin 12.2 g/dL (12.9-16.9); Mean Corpuscular HGB Conc 30.3 g/dL (31.6-35.5); Mean Corpuscular Hemoglobin 26.3 pg (28.0-33.3); Mean Corpuscular Volume 86.6 fL (83.0-100.0); Mean Platelet Volume 12.3 fL (9.4-12.4); Platelet Count 188 K/mcL (140-400); Red Blood Count 4.64 M/mcL (4.19-5.50); Red Cell Distribution Width 17.1 % (11.5-14.5); White Blood Count 10.1 K/mcL (4.3-11.1)
[2021-07-27 03:13] LABS: Calcium 8.6 mg/dL (8.6-10.3); Magnesium 2.2 mg/dL (1.6-2.6); Phosphorous 4.2 mg/dL (2.7-4.5); Potassium 4.3 mEq/L (3.5-5.1)
[2021-07-27 06:35] LABS: Troponin I 0.03 ng/mL (< 0.04)
[2021-07-27] MEDS: Aspirin 81 MG TAB.CHEW PO SCH (08:25)
[2021-07-27] MEDS: Apixaban 5 MG TABLET PO SCH ×2 (08:26→21:17)
[2021-07-27] MEDS: Insulin LISPRO 300 UNITS/3 ML VIAL SUBQ SCH ×3 (08:26→16:49)
[2021-07-27] MEDS: Metoprolol XL (24 HR) Succ 50 MG TAB.ER.24H PO SCH (14:04)
[2021-07-27 14:58] LABS: Influenza A PCR Negative (Negative); Influenza B PCR Negative (Negative); Resp. Syncytial Virus PCR Negative (Negative)
[2021-07-27 14:59] LABS: SARS-CoV-2 by PCR (In House) Negative (Negative)
[2021-07-27] MEDS: Ipratropium/Albuterol Neb 3 ML IH PRN (17:00)
[2021-07-27] MEDS ORDERED: Furosemide 40 MG TABLET PO SCH (18:30)
[2021-07-28] MEDS: Insulin LISPRO 300 UNITS/3 ML VIAL SUBQ SCH ×5 (00:42→20:29)
[2021-07-28] MEDS ORDERED: Furosemide 20 MG/2 ML VIAL IVP ONE (03:12)
[2021-07-28 06:06] LABS: Calcium 8.5 mg/dL (8.6-10.3); Phosphorous 3.1 mg/dL (2.7-4.5); Potassium 3.8 mEq/L (3.5-5.1)
[2021-07-28 06:26] LABS: Hematocrit 38.9 % (37.5-50.1); Hemoglobin 12.2 g/dL (12.9-16.9); Mean Corpuscular HGB Conc 31.4 g/dL (31.6-35.5); Mean Corpuscular Hemoglobin 26.9 pg (28.0-33.3); Mean Corpuscular Volume 85.9 fL (83.0-100.0); Mean Platelet Volume 12.3 fL (9.4-12.4); Platelet Count 177 K/mcL (140-400); Red Blood Count 4.53 M/mcL (4.19-5.50); Red Cell Distribution Width 16.8 % (11.5-14.5); White Blood Count 13.3 K/mcL (4.3-11.1)
[2021-07-28] MEDS: Metoprolol XL (24 HR) Succ 50 MG TAB.ER.24H PO SCH (07:28)
[2021-07-28] MEDS: Apixaban 5 MG TABLET PO SCH ×2 (07:28→19:49)
[2021-07-28] MEDS: Aspirin 81 MG TAB.CHEW PO SCH (07:29)
[2021-07-28] MEDS: amLODIPine 5 MG TABLET PO SCH (07:31)
[2021-07-28] MEDS ORDERED: Furosemide 40 MG TABLET PO SCH (08:00)
[2021-07-28] MEDS: Furosemide 40 MG/4 ML VIAL IVP SCH ×2 (10:11→19:49)
[2021-07-28] MEDS: Isosorbide MONOnitrate (24 HR) 60 MG TAB.ER.24H PO SCH (14:28)
[2021-07-28] MEDS: Ipratropium/Albuterol Neb 3 ML IH PRN (20:16)
[2021-07-29] MEDS: Melatonin 3 MG TABLET PO PRN ×2 (00:07→23:49)
[2021-07-29 02:42] LABS: Hematocrit 37.8 % (37.5-50.1); Hemoglobin 11.7 g/dL (12.9-16.9); Mean Corpuscular Hemoglobin 26.9 pg (28.0-33.3); Mean Corpuscular Volume 86.9 fL (83.0-100.0); Mean Platelet Volume 12.5 fL (9.4-12.4); Platelet Count 171 K/mcL (140-400); Red Blood Count 4.35 M/mcL (4.19-5.50); Red Cell Distribution Width 16.7 % (11.5-14.5); White Blood Count 13.3 K/mcL (4.3-11.1)
[2021-07-29 03:00] LABS: Calcium 8.6 mg/dL (8.6-10.3); Magnesium 1.9 mg/dL (1.6-2.6); Phosphorous 2.3 mg/dL (2.7-4.5); Potassium 3.3 mEq/L (3.5-5.1)
[2021-07-29] MEDS: Insulin LISPRO 300 UNITS/3 ML VIAL SUBQ SCH ×4 (07:51→20:45)
[2021-07-29] MEDS: Metoprolol XL (24 HR) Succ 50 MG TAB.ER.24H PO SCH (07:57)
[2021-07-29] MEDS: amLODIPine 5 MG TABLET PO SCH (07:57)
[2021-07-29] MEDS: Aspirin 81 MG TAB.CHEW PO SCH (07:57)
[2021-07-29] MEDS: Apixaban 5 MG TABLET PO SCH (07:57)
[2021-07-29] MEDS: Isosorbide MONOnitrate (24 HR) 60 MG TAB.ER.24H PO SCH (07:58)
[2021-07-29] MEDS: Furosemide 40 MG/4 ML VIAL IVP SCH ×2 (07:58→20:18)
[2021-07-29] MEDS: Ipratropium/Albuterol Neb 3 ML IH PRN ×3 (08:07→16:22)
[2021-07-29] MEDS ORDERED: *HR* Heparin 5,000 UNIT/ML VIAL IVP PRN ×4 (10:50→20:00)
[2021-07-29] MEDS ORDERED: *HR* Heparin 5,000 UNIT/ML VIAL IVP ONE (10:50)
[2021-07-29] MEDS ORDERED: Heparin 25,000UNIT/250ML 1/2NS 25,000 UNIT/250 ML IV.SOLN IVC SCH (11:00)
[2021-07-29 12:01] LABS: Hematocrit 37.6 % (37.5-50.1); Hemoglobin 11.7 g/dL (12.9-16.9); Mean Corpuscular HGB Conc 31.1 g/dL (31.6-35.5); Mean Corpuscular Hemoglobin 27.1 pg (28.0-33.3); Mean Corpuscular Volume 87.2 fL (83.0-100.0); Mean Platelet Volume 11.8 fL (9.4-12.4); Platelet Count 168 K/mcL (140-400); Red Blood Count 4.31 M/mcL (4.19-5.50); Red Cell Distribution Width 16.5 % (11.5-14.5); White Blood Count 13.4 K/mcL (4.3-11.1)
[2021-07-29 12:08] LABS: INR 2.1; Prothrombin Time 23.5 Seconds (9.4-12.1)
[2021-07-29 18:13] LABS: Potassium 3.6 mEq/L (3.5-5.1)
[2021-07-29] MEDS ORDERED: *HR* Heparin 5,000 UNIT/ML VIAL SQ ONE (20:00)
[2021-07-29] MEDS: Heparin 25,000UNIT/250ML 1/2NS 25,000 UNIT/250 ML IV.SOLN IVC SCH (20:30)
[2021-07-29] MEDS: Acetaminophen 325 MG TABLET PO PRN (23:49)
[2021-07-30 03:15] LABS: Basophils # 0.1 K/mcL (0.0-0.2); Basophils % 0.5 %; Eosinophils # 0.2 K/mcL (0.0-0.6); Eosinophils % 1.9 %; Hematocrit 34.9 % (37.5-50.1); Immature Granulocytes % 0.3 % (0-4); Lymphocytes # 1.1 K/mcL (0.6-4.6); Lymphocytes % 8.8 %; Mean Corpuscular HGB Conc 31.5 g/dL (31.6-35.5); Mean Corpuscular Hemoglobin 27.1 pg (28.0-33.3); Mean Platelet Volume 11.5 fL (9.4-12.4); Monocytes # 0.8 K/mcL (0.0-1.3); Monocytes % 6.9 %; Neutrophils # 9.9 K/mcL (1.6-8.9); Platelet Count 169 K/mcL (140-400); Red Blood Count 4.06 M/mcL (4.19-5.50); Red Cell Distribution Width 16.5 % (11.5-14.5); Segmented Neutrophils % 81.6 %; White Blood Count 12.1 K/mcL (4.3-11.1)
[2021-07-30 03:32] LABS: BUN/Creatinine Ratio 15 (6-26); Blood Urea Nitrogen 19 mg/dL (8-23); Calcium 8.5 mg/dL (8.6-10.3); Carbon Dioxide 30 mEq/L (23-29); Chloride 103 mEq/L (98-107); Glucose 172 mg/dL (70-105); Magnesium 1.9 mg/dL (1.6-2.6); Osmolality,Calculated 296 (280-300); Phosphorous 2.1 mg/dL (2.7-4.5); Potassium 3.5 mEq/L (3.5-5.1); Sodium 140 mEq/L (136-145); eGFR For African Americans > 60 (> 60); eGFR For Non-African Americans 55 (> 60)
[2021-07-30 03:38] LABS: INR 1.6
[2021-07-30] MEDS: Aspirin 81 MG TAB.CHEW PO SCH (08:01)
[2021-07-30] MEDS: carvediloL 25 MG TABLET PO SCH ×2 (08:01→17:20)
[2021-07-30] MEDS: amLODIPine 5 MG TABLET PO SCH (08:01)
[2021-07-30] MEDS: Isosorbide MONOnitrate (24 HR) 60 MG TAB.ER.24H PO SCH (08:01)
[2021-07-30] MEDS: Furosemide 40 MG/4 ML VIAL IVP SCH (08:02)
[2021-07-30] MEDS ORDERED: Potassium Phosphate 44 MEQ in 0.9 % Sodium Chloride 250 ML IVPB ONE (08:28)
[2021-07-30] MEDS: Ipratropium/Albuterol Neb 3 ML IH PRN ×2 (09:10→23:34)
[2021-07-30] MEDS: Insulin LISPRO 300 UNITS/3 ML VIAL SUBQ SCH ×4 (10:45→21:58)
[2021-07-30] MEDS: Heparin 25,000UNIT/250ML 1/2NS 25,000 UNIT/250 ML IV.SOLN IVC SCH (14:26)
[2021-07-30] MEDS ORDERED: ISOVUE-370 200 ML INFUS..BTL ONE (15:13)
[2021-07-30] MEDS ORDERED: Heparin 1,000 UNITS/500 mL 500 ML ONE (15:13)
[2021-07-30] MEDS ORDERED: *HR* Heparin 10,000 UNIT/10 ML VIAL ONE (15:13)
[2021-07-30] MEDS ORDERED: 0.9 % Sodium Chloride 2,000 ML ONE (15:13)
[2021-07-30] MEDS ORDERED: Nitroglycerin 1,000 MCG/5 ML VIAL IV ONE (15:14)
[2021-07-30] MEDS ORDERED: *HR* Midazolam HCl 2 MG/2 ML VIAL ONE (15:49)
[2021-07-30] MEDS ORDERED: *HR* FentaNYL (PF) 100 MCG/2 ML VIAL ONE (15:52)
[2021-07-30] MEDS ORDERED: Furosemide 40 MG/4 ML VIAL IVP ONE (16:41)
[2021-07-30] MEDS: Apixaban 5 MG TABLET PO SCH (21:57)
[2021-07-30] MEDS: Furosemide 80 MG in 0.9 % Sodium Chloride 50 ML IVPB ONE ×2 (22:11→23:49)
[2021-07-30 22:49] LABS: BUN/Creatinine Ratio 14 (6-26); Blood Urea Nitrogen 19 mg/dL (8-23); Calcium 8.3 mg/dL (8.6-10.3); Carbon Dioxide 32 mEq/L (23-29); Chloride 102 mEq/L (98-107); Glucose 288 mg/dL (70-105); Osmolality,Calculated 303 (280-300); Potassium 3.7 mEq/L (3.5-5.1); Sodium 140 mEq/L (136-145); eGFR For African Americans > 60 (> 60); eGFR For Non-African Americans 53 (> 60)
[2021-07-31 03:17] LABS: Basophils # 0.1 K/mcL (0.0-0.2); Basophils % 0.5 %; Eosinophils # 0.4 K/mcL (0.0-0.6); Eosinophils % 4.3 %; Hematocrit 35.2 % (37.5-50.1); Hemoglobin 10.9 g/dL (12.9-16.9); Immature Granulocytes % 0.4 % (0-4); Lymphocytes # 0.9 K/mcL (0.6-4.6); Lymphocytes % 9.3 %; Mean Corpuscular Volume 87.3 fL (83.0-100.0); Mean Platelet Volume 11.2 fL (9.4-12.4); Monocytes # 0.6 K/mcL (0.0-1.3); Monocytes % 6.3 %; Platelet Count 179 K/mcL (140-400); Red Blood Count 4.03 M/mcL (4.19-5.50); Red Cell Distribution Width 16.5 % (11.5-14.5); Segmented Neutrophils % 79.2 %; White Blood Count 10.1 K/mcL (4.3-11.1)
[2021-07-31 03:25] LABS: INR 1.6; Prothrombin Time 18.3 Seconds (9.4-12.1)
[2021-07-31 03:36] LABS: BUN/Creatinine Ratio 15 (6-26); Blood Urea Nitrogen 19 mg/dL (8-23); Calcium 8.3 mg/dL (8.6-10.3); Carbon Dioxide 32 mEq/L (23-29); Chloride 102 mEq/L (98-107); Glucose 127 mg/dL (70-105); Magnesium 2.2 mg/dL (1.6-2.6); Osmolality,Calculated 298 (280-300); Potassium 3.4 mEq/L (3.5-5.1); Sodium 142 mEq/L (136-145); eGFR For African Americans > 60 (> 60); eGFR For Non-African Americans 56 (> 60)
[2021-07-31] MEDS: Acetaminophen 325 MG TABLET PO PRN ×2 (05:09→20:54)
[2021-07-31] MEDS: Ipratropium/Albuterol Neb 3 ML IH PRN ×3 (07:48→21:15)
[2021-07-31] MEDS: Isosorbide MONOnitrate (24 HR) 60 MG TAB.ER.24H PO SCH (07:49)
[2021-07-31] MEDS: Aspirin 81 MG TAB.CHEW PO SCH (07:49)
[2021-07-31] MEDS: amLODIPine 5 MG TABLET PO SCH (07:49)
[2021-07-31] MEDS: Apixaban 5 MG TABLET PO SCH ×2 (07:49→20:26)
[2021-07-31] MEDS: carvediloL 25 MG TABLET PO SCH ×2 (07:49→16:56)
[2021-07-31] MEDS: Insulin LISPRO 300 UNITS/3 ML VIAL SUBQ SCH ×4 (07:53→20:27)
[2021-07-31] MEDS ORDERED: Potassium Chloride Elixir 20 MEQ/15 ML UDC PO ONE (08:00)
[2021-07-31] MEDS: Furosemide 40 MG/4 ML VIAL IVP SCH ×3 (09:07→20:26)
[2021-08-01 02:28] LABS: Basophils # 0.1 K/mcL (0.0-0.2); Basophils % 0.8 %; Eosinophils # 0.5 K/mcL (0.0-0.6); Eosinophils % 5.8 %; Hematocrit 36.7 % (37.5-50.1); Hemoglobin 11.2 g/dL (12.9-16.9); Immature Granulocytes % 0.3 % (0-4); Lymphocytes # 1.6 K/mcL (0.6-4.6); Lymphocytes % 18.3 %; Mean Corpuscular HGB Conc 30.5 g/dL (31.6-35.5); Mean Corpuscular Hemoglobin 26.4 pg (28.0-33.3); Mean Corpuscular Volume 86.4 fL (83.0-100.0); Mean Platelet Volume 10.8 fL (9.4-12.4); Monocytes # 0.6 K/mcL (0.0-1.3); Monocytes % 7.1 %; Neutrophils # 5.9 K/mcL (1.6-8.9); Platelet Count 189 K/mcL (140-400); Red Blood Count 4.25 M/mcL (4.19-5.50); Red Cell Distribution Width 16.4 % (11.5-14.5); Segmented Neutrophils % 67.7 %; White Blood Count 8.8 K/mcL (4.3-11.1)
[2021-08-01 02:35] LABS: INR 1.5; Prothrombin Time 16.6 Seconds (9.4-12.1)
[2021-08-01 02:47] LABS: BUN/Creatinine Ratio 20 (6-26); Blood Urea Nitrogen 26 mg/dL (8-23); Calcium 8.4 mg/dL (8.6-10.3); Carbon Dioxide 33 mEq/L (23-29); Chloride 103 mEq/L (98-107); Glucose 173 mg/dL (70-105); Osmolality,Calculated 303 (280-300); Sodium 142 mEq/L (136-145); eGFR For African Americans > 60 (> 60); eGFR For Non-African Americans 55 (> 60)
[2021-08-01] MEDS: Ipratropium/Albuterol Neb 3 ML IH PRN (03:11)
[2021-08-01 03:15] LABS: BUN/Creatinine Ratio 20 (6-26); Blood Urea Nitrogen 26 mg/dL (8-23); Calcium 8.5 mg/dL (8.6-10.3); Carbon Dioxide 33 mEq/L (23-29); Chloride 104 mEq/L (98-107); Glucose 173 mg/dL (70-105); Magnesium 2.2 mg/dL (1.6-2.6); Osmolality,Calculated 303 (280-300); Sodium 142 mEq/L (136-145); eGFR For African Americans > 60 (> 60); eGFR For Non-African Americans 55 (> 60)
[2021-08-01] MEDS ORDERED: Furosemide 20 MG/2 ML VIAL IVP ONE (03:33)
[2021-08-01] MEDS ORDERED: Levalbuterol Neb 1.25 MG/3 ML IH ONE (03:34)
[2021-08-01] MEDS ORDERED: Albumin 25% 25gram/100mL 25 GM/100 ML IV.SOLN IVPB SCH ×2 (04:00→08:00)
[2021-08-01] MEDS: amLODIPine 5 MG TABLET PO SCH (06:23)
[2021-08-01] MEDS: carvediloL 25 MG TABLET PO SCH ×2 (06:23→16:11)
[2021-08-01] MEDS: Insulin LISPRO 300 UNITS/3 ML VIAL SUBQ SCH ×4 (07:59→20:20)
[2021-08-01] MEDS: Isosorbide MONOnitrate (24 HR) 60 MG TAB.ER.24H PO SCH (09:05)
[2021-08-01] MEDS: Aspirin 81 MG TAB.CHEW PO SCH (09:05)
[2021-08-01] MEDS: Apixaban 5 MG TABLET PO SCH ×2 (09:06→20:19)
[2021-08-01] MEDS: metOLazone 2.5 MG TABLET PO SCH (09:12)
[2021-08-01] MEDS: Furosemide 240 MG in 0.9 % Sodium Chloride 96 ML IVC SCH (10:19)
[2021-08-01 17:19] LABS: Chloride 100 mEq/L (98-107); Potassium 3.9 mEq/L (3.5-5.1); Sodium 143 mEq/L (136-145)
[2021-08-01 17:57] LABS: BUN/Creatinine Ratio 19 (6-26); Blood Urea Nitrogen 24 mg/dL (8-23); Calcium 9.2 mg/dL (8.6-10.3); Carbon Dioxide 31 mEq/L (23-29); Glucose 191 mg/dL (70-105); Magnesium 2.2 mg/dL (1.6-2.6); Osmolality,Calculated 305 (280-300); eGFR For African Americans > 60 (> 60); eGFR For Non-African Americans 56 (> 60)
[2021-08-02 04:40] LABS: Basophils # 0.1 K/mcL (0.0-0.2); Basophils % 0.7 %; Eosinophils # 0.5 K/mcL (0.0-0.6); Eosinophils % 5.8 %; Hematocrit 38.3 % (37.5-50.1); Hemoglobin 11.8 g/dL (12.9-16.9); Immature Granulocytes % 0.3 % (0-4); Lymphocytes % 10.8 %; Mean Corpuscular HGB Conc 30.8 g/dL (31.6-35.5); Mean Corpuscular Hemoglobin 26.5 pg (28.0-33.3); Mean Corpuscular Volume 85.9 fL (83.0-100.0); Mean Platelet Volume 11.2 fL (9.4-12.4); Monocytes # 0.8 K/mcL (0.0-1.3); Monocytes % 9.1 %; Neutrophils # 6.5 K/mcL (1.6-8.9); Platelet Count 238 K/mcL (140-400); Red Blood Count 4.46 M/mcL (4.19-5.50); Red Cell Distribution Width 15.9 % (11.5-14.5); Segmented Neutrophils % 73.3 %; White Blood Count 8.8 K/mcL (4.3-11.1)
[2021-08-02 04:48] LABS: INR 1.6
[2021-08-02 05:00] LABS: BUN/Creatinine Ratio 20 (6-26); Blood Urea Nitrogen 28 mg/dL (8-23); Calcium 9.8 mg/dL (8.6-10.3); Carbon Dioxide 37 mEq/L (23-29); Chloride 95 mEq/L (98-107); Glucose 161 mg/dL (70-105); Magnesium 2.2 mg/dL (1.6-2.6); Osmolality,Calculated 301 (280-300); Potassium 3.7 mEq/L (3.5-5.1); Sodium 141 mEq/L (136-145); eGFR For African Americans > 60 (> 60); eGFR For Non-African Americans 50 (> 60)
[2021-08-02] MEDS: Furosemide 240 MG in 0.9 % Sodium Chloride 96 ML IVC SCH (07:56)
[2021-08-02] MEDS: Insulin LISPRO 300 UNITS/3 ML VIAL SUBQ SCH ×4 (09:07→20:39)
[2021-08-02] MEDS: Furosemide 40 MG/4 ML VIAL IVP SCH ×3 (09:09→20:38)
[2021-08-02] MEDS: metOLazone 2.5 MG TABLET PO SCH (09:10)
[2021-08-02] MEDS: amLODIPine 5 MG TABLET PO SCH (09:10)
[2021-08-02] MEDS: carvediloL 25 MG TABLET PO SCH ×2 (09:10→16:53)
[2021-08-02] MEDS: Isosorbide MONOnitrate (24 HR) 60 MG TAB.ER.24H PO SCH (09:10)
[2021-08-02] MEDS: Aspirin 81 MG TAB.CHEW PO SCH (09:11)
[2021-08-02] MEDS: Apixaban 5 MG TABLET PO SCH ×2 (09:11→20:37)
[2021-08-03 02:28] LABS: Basophils # 0.1 K/mcL (0.0-0.2); Basophils % 0.8 %; Eosinophils # 0.4 K/mcL (0.0-0.6); Eosinophils % 4.4 %; Hemoglobin 11.5 g/dL (12.9-16.9); Immature Granulocytes % 0.4 % (0-4); Lymphocytes # 2.2 K/mcL (0.6-4.6); Mean Corpuscular HGB Conc 31.9 g/dL (31.6-35.5); Mean Corpuscular Hemoglobin 26.8 pg (28.0-33.3); Mean Corpuscular Volume 83.9 fL (83.0-100.0); Mean Platelet Volume 10.9 fL (9.4-12.4); Monocytes # 1.1 K/mcL (0.0-1.3); Monocytes % 11.5 %; Neutrophils # 5.4 K/mcL (1.6-8.9); Platelet Count 246 K/mcL (140-400); Red Blood Count 4.29 M/mcL (4.19-5.50); Red Cell Distribution Width 15.9 % (11.5-14.5); Segmented Neutrophils % 58.9 %; White Blood Count 9.2 K/mcL (4.3-11.1)
[2021-08-03 02:36] LABS: INR 1.7; Prothrombin Time 18.4 Seconds (9.4-12.1)
[2021-08-03 02:44] LABS: Calcium 9.4 mg/dL (8.6-10.3); Magnesium 2.2 mg/dL (1.6-2.6)
[2021-08-03] MEDS: Isosorbide MONOnitrate (24 HR) 60 MG TAB.ER.24H PO SCH (07:31)
[2021-08-03] MEDS: amLODIPine 5 MG TABLET PO SCH (07:31)
[2021-08-03] MEDS: carvediloL 25 MG TABLET PO SCH ×2 (07:32→15:57)
[2021-08-03] MEDS: Apixaban 5 MG TABLET PO SCH ×2 (07:32→19:51)
[2021-08-03] MEDS: Aspirin 81 MG TAB.CHEW PO SCH (07:32)
[2021-08-03] MEDS: Furosemide 40 MG/4 ML VIAL IVP SCH (07:32)
[2021-08-03] MEDS: Insulin LISPRO 300 UNITS/3 ML VIAL SUBQ SCH ×4 (07:32→19:50)
[2021-08-03] MEDS: metOLazone 2.5 MG TABLET PO SCH (07:32)
[2021-08-03 18:11] LABS: Uric Acid 10.4 mg/dL (2.3-7.6)
[2021-08-03 20:14] LABS: Color,Urine LIGHT BROWN (Yellow)
[2021-08-03 20:15] LABS: Bilirubin,Urine Negative (Negative); Clarity,Urine Ex.Turbid (Clear); Glucose,Urine (UA) Normal (Normal)
[2021-08-03 20:16] LABS: Blood,Urine Large (Negative); Ketones,Urine Negative (Negative); PH,Urine 5.5 pH Units (5.0-8.0); Protein,Urine 30 mg/dL (Neg-Trace); Urobilinogen,Urine Normal (Normal)
[2021-08-03 20:17] LABS: Leukocyte Esterase,Urine Trace (Negative); Nitrite,Urine Negative (Negative)
[2021-08-03 20:20] LABS: RBC,Urine TNTC per hpf (0-3)
[2021-08-03 20:21] LABS: Amorphous Sediment,Urine Few per hpf (None-Few); Hyaline Casts,Urine Few per lpf (None Seen); WBC,Urine 0-3 per hpf (0-3)
[2021-08-04 02:59] LABS: Hematocrit 38.4 % (37.5-50.1); Hemoglobin 11.8 g/dL (12.9-16.9); Mean Corpuscular HGB Conc 30.7 g/dL (31.6-35.5); Mean Corpuscular Hemoglobin 25.9 pg (28.0-33.3); Mean Corpuscular Volume 84.4 fL (83.0-100.0); Mean Platelet Volume 10.5 fL (9.4-12.4); Platelet Count 258 K/mcL (140-400); Red Blood Count 4.55 M/mcL (4.19-5.50); Red Cell Distribution Width 15.8 % (11.5-14.5); White Blood Count 10.3 K/mcL (4.3-11.1)
[2021-08-04 03:14] LABS: Calcium 9.3 mg/dL (8.6-10.3); Potassium 4.2 mEq/L (3.5-5.1)
[2021-08-04] MEDS: amLODIPine 5 MG TABLET PO SCH (11:07)
[2021-08-04] MEDS: Apixaban 5 MG TABLET PO SCH ×2 (11:08→21:33)
[2021-08-04] MEDS: Aspirin 81 MG TAB.CHEW PO SCH (11:08)
[2021-08-04] MEDS: carvediloL 25 MG TABLET PO SCH ×2 (11:08→18:49)
[2021-08-04] MEDS: Isosorbide MONOnitrate (24 HR) 60 MG TAB.ER.24H PO SCH (11:08)
[2021-08-04] MEDS: Insulin LISPRO 300 UNITS/3 ML VIAL SUBQ SCH ×4 (11:10→21:34)
[2021-08-05 01:44] LABS: Calcium 9.5 mg/dL (8.6-10.3); Potassium 4.1 mEq/L (3.5-5.1)
[2021-08-05 04:35] VITALS: O2SAT 97
[2021-08-05 07:48] VITALS: BP 177/80; PULSE 57; TEMP 98.1
[2021-08-05] MEDS: amLODIPine 5 MG TABLET PO SCH (08:42)
[2021-08-05] MEDS: Apixaban 5 MG TABLET PO SCH (08:43)
[2021-08-05] MEDS: Insulin LISPRO 300 UNITS/3 ML VIAL SUBQ SCH (08:43)
[2021-08-05] MEDS: Isosorbide MONOnitrate (24 HR) 60 MG TAB.ER.24H PO SCH (08:43)
[2021-08-05] MEDS: Aspirin 81 MG TAB.CHEW PO SCH (08:43)
[2021-08-05] MEDS: carvediloL 25 MG TABLET PO SCH (08:43)
[2021-08-07 00:13] LABS: Alpha 2 Globulin (PEP) 1.25 g/dL (0.48-1.05); Beta Globulin (PEP) 1.23 g/dL (0.48-1.10)
[2021-08-07 10:52] LABS: IFE Reflexed NOT DONE
== END 2021-08-05 11:28 | disposition home or self-care (01) | DRG 286 ==
LOC: 2NNU 15:26 → EMEROOARM 15:26 → SUATTDRO 18:12 → 2NNU 18:45 → SUATTDRO 07-27 13:56 → 3NENU 08-04 06:18
PROVIDERS: ADMIT Internal Medicine; ATTEND Family Medicine

== ENCOUNTER 2021-08-13 21:23 | Inpatient (IN) ==
[2021-08-13 22:12] LABS: Basophils # 0.1 K/mcL (0.0-0.2); Eosinophils # 0.5 K/mcL (0.0-0.6); Hematocrit 36.8 % (37.5-50.1); Hemoglobin 11.6 g/dL (12.9-16.9); Immature Granulocytes % 0.3 % (0-4); Lymphocytes # 2.1 K/mcL (0.6-4.6); Lymphocytes % 17.9 %; Mean Corpuscular HGB Conc 31.5 g/dL (31.6-35.5); Mean Corpuscular Hemoglobin 26.3 pg (28.0-33.3); Mean Corpuscular Volume 83.4 fL (83.0-100.0); Mean Platelet Volume 10.9 fL (9.4-12.4); Monocytes # 0.9 K/mcL (0.0-1.3); Monocytes % 7.4 %; Platelet Count 333 K/mcL (140-400); Red Blood Count 4.41 M/mcL (4.19-5.50); Red Cell Distribution Width 15.3 % (11.5-14.5); Segmented Neutrophils % 69.4 %; White Blood Count 11.5 K/mcL (4.3-11.1)
[2021-08-13] MEDS ORDERED: levETIRAcetam 1,000 MG in 0.9 % Sodium Chloride 100 ML IVPB ONE (22:24)
[2021-08-13 22:34] LABS: Troponin I 0.03 ng/mL (< 0.04)
[2021-08-13 22:35] LABS: Albumin 3.9 g/dL (3.5-5.7); Albumin/Globulin Ratio 1.2 (1.1-2.2); Bilirubin,Total 0.5 mg/dL (0.3-1.0); Calcium 9.7 mg/dL (8.6-10.3); Globulin 3.2 g/dL (2.4-3.5); Potassium 5.6 mEq/L (3.5-5.1); Total Protein 7.1 g/dL (6.4-8.9)
[2021-08-14] MEDS ORDERED: Ondansetron 4 MG/2 ML VIAL IVP PRN (00:22)
[2021-08-14] MEDS ORDERED: Naloxone 0.4 MG/ML INJ IVP PRN (00:22)
[2021-08-14] MEDS ORDERED: Dextrose 4 GM Chewable Tablets PO PRN ×2 (00:41)
[2021-08-14] MEDS ORDERED: D5% in Water 1,000 ML IVC PRN (00:41)
[2021-08-14] MEDS ORDERED: *HR* Dextrose 50 % in Water (Syg) 50 ML SYRINGE IVP PRN (00:41)
[2021-08-14] MEDS ORDERED: 0.9 % Sodium Chloride 500 ML IVC PRN (00:45)
[2021-08-14] MEDS: 0.9 % Sodium Chloride 1,000 ML IVC SCH ×2 (02:02→11:32)
[2021-08-14] MEDS ORDERED: SODIUM ZIRCONIUM CYCLOSILICATE 5 GM POWD.PACK PO ONE (02:05)
[2021-08-14] MEDS ORDERED: Calcium Gluconate 1gm/50mL 1 GM/50 ML BAG IVPB ONE (02:06)
[2021-08-14 02:19] LABS: Basophils # 0.1 K/mcL (0.0-0.2); Basophils % 0.8 %; Eosinophils # 0.6 K/mcL (0.0-0.6); Hemoglobin 11.4 g/dL (12.9-16.9); Immature Granulocytes % 0.5 % (0-4); Lymphocytes # 2.4 K/mcL (0.6-4.6); Lymphocytes % 21.4 %; Mean Corpuscular HGB Conc 31.7 g/dL (31.6-35.5); Mean Corpuscular Hemoglobin 26.4 pg (28.0-33.3); Mean Corpuscular Volume 83.3 fL (83.0-100.0); Monocytes # 0.9 K/mcL (0.0-1.3); Monocytes % 8.1 %; Neutrophils # 7.1 K/mcL (1.6-8.9); Platelet Count 340 K/mcL (140-400); Red Blood Count 4.32 M/mcL (4.19-5.50); Red Cell Distribution Width 15.2 % (11.5-14.5); Segmented Neutrophils % 64.2 %
[2021-08-14 02:27] LABS: INR 1.5
[2021-08-14 02:45] LABS: Calcium 9.4 mg/dL (8.6-10.3); Magnesium 2.2 mg/dL (1.6-2.6); Potassium 5.1 mEq/L (3.5-5.1); Troponin I 0.03 ng/mL (< 0.04)
[2021-08-14 02:46] LABS: Uric Acid 15.8 mg/dL (2.3-7.6)
[2021-08-14 02:52] LABS: Thyroid Stimulating Hormone 0.8 mcIU/mL (0.340-5.600)
[2021-08-14 03:04] LABS: Bilirubin,Urine Negative (Negative); Blood,Urine Negative (Negative); Clarity,Urine Clear (Clear); Color,Urine Light-Yellow (Yellow); Glucose,Urine (UA) Normal (Normal); Hyaline Casts,Urine Few per lpf (None Seen); Ketones,Urine Negative (Negative); Leukocyte Esterase,Urine Trace (Negative); Mucus,Urine Few per lpf (None-Few); Nitrite,Urine Negative (Negative); PH,Urine 5.5 pH Units (5.0-8.0); Protein,Urine Negative (Neg-Trace); Specific Gravity,Urine 1.011 (1.010-1.025); Urobilinogen,Urine Normal (Normal); WBC,Urine 0-3 per hpf (0-3)
[2021-08-14 03:17] LABS: Potassium,Urine 61.8 mEq/L; Sodium, Urine 17.6 mEq/L
[2021-08-14 03:18] LABS: Phosphorous 5.7 mg/dL (2.7-4.5)
[2021-08-14] MEDS ORDERED: Amiodarone Premix 360 MG/200 ML BAG IVC ONE (03:25)
[2021-08-14] MEDS ORDERED: Amiodarone Premix 150 MG/100 ML BAG IVPB ONE (03:25)
[2021-08-14 04:28] LABS: Estimated Average Glucose 192 mg/dl; Hemoglobin A1C 8.3 %
[2021-08-14] MEDS ORDERED: carvediloL 25 MG TABLET PO SCH (08:00)
[2021-08-14] MEDS: Insulin LISPRO 300 UNITS/3 ML VIAL SUBQ SCH ×3 (08:01→17:11)
[2021-08-14] MEDS: Apixaban 5 MG TABLET PO SCH ×2 (08:26→20:00)
[2021-08-14] MEDS ORDERED: amLODIPine 5 MG TABLET PO SCH (09:00)
[2021-08-14] MEDS: Amiodarone Premix 360 MG/200 ML BAG IVC SCH ×2 (09:55→20:37)
[2021-08-14] MEDS ORDERED: Perflutren Lipid Microsphere 1.3 ML in 0.9 % Sodium Chloride 8.7 ML IVP PRN (10:07)
[2021-08-14] MEDS: Isosorbide MONOnitrate (24 HR) 30 MG TAB.ER.24H PO SCH (11:59)
[2021-08-14] MEDS: Acetaminophen 325 MG TABLET PO PRN (12:28)
[2021-08-14] MEDS ORDERED: Methyl Salicylate/Menthol 85 APPL/85 GM TUBE TP PRN (13:52)
[2021-08-14] MEDS: Sodium Bicarbonate 75 MEQ in 0.45 % Sodium Chloride 1,000 ML IVC SCH (14:40)
[2021-08-14 14:44] LABS: Creatinine,Urine 36 mg/dL
[2021-08-15] MEDS: Sodium Bicarbonate 75 MEQ in 0.45 % Sodium Chloride 1,000 ML IVC SCH (02:00)
[2021-08-15] MEDS: Acetaminophen 325 MG TABLET PO PRN (05:06)
[2021-08-15 06:13] LABS: Hematocrit 35.8 % (37.5-50.1); Hemoglobin 11.5 g/dL (12.9-16.9); Mean Corpuscular HGB Conc 32.1 g/dL (31.6-35.5); Mean Corpuscular Hemoglobin 26.6 pg (28.0-33.3); Mean Corpuscular Volume 82.7 fL (83.0-100.0); Mean Platelet Volume 11.3 fL (9.4-12.4); Platelet Count 320 K/mcL (140-400); Red Blood Count 4.33 M/mcL (4.19-5.50); Red Cell Distribution Width 15.3 % (11.5-14.5); White Blood Count 9.2 K/mcL (4.3-11.1)
[2021-08-15 06:48] LABS: Calcium 9.1 mg/dL (8.6-10.3); Potassium 3.9 mEq/L (3.5-5.1)
[2021-08-15] MEDS: Amiodarone Premix 360 MG/200 ML BAG IVC SCH ×2 (07:33→18:38)
[2021-08-15] MEDS: Isosorbide MONOnitrate (24 HR) 30 MG TAB.ER.24H PO SCH (08:18)
[2021-08-15] MEDS: Apixaban 5 MG TABLET PO SCH ×2 (08:18→20:12)
[2021-08-15] MEDS: Insulin LISPRO 300 UNITS/3 ML VIAL SUBQ SCH ×3 (08:19→17:38)
[2021-08-16 04:10] LABS: Hemoglobin 10.2 g/dL (12.9-16.9); Mean Corpuscular HGB Conc 30.9 g/dL (31.6-35.5); Mean Corpuscular Hemoglobin 25.8 pg (28.0-33.3); Mean Corpuscular Volume 83.5 fL (83.0-100.0); Mean Platelet Volume 11.8 fL (9.4-12.4); Platelet Count 289 K/mcL (140-400); Red Blood Count 3.95 M/mcL (4.19-5.50); Red Cell Distribution Width 15.3 % (11.5-14.5); White Blood Count 9.2 K/mcL (4.3-11.1)
[2021-08-16 04:25] LABS: Potassium 3.7 mEq/L (3.5-5.1)
[2021-08-16] MEDS: Amiodarone Premix 360 MG/200 ML BAG IVC SCH ×2 (07:13→17:53)
[2021-08-16] MEDS: Insulin LISPRO 300 UNITS/3 ML VIAL SUBQ SCH ×3 (07:42→17:02)
[2021-08-16] MEDS: Apixaban 5 MG TABLET PO SCH ×2 (08:53→20:42)
[2021-08-16] MEDS: Multivit/Ca/Min/Fe/FA 1 TAB TABLET PO SCH (08:53)
[2021-08-16] MEDS: Lactobacillus 1 EACH CAP.SPRINK PO SCH (08:54)
[2021-08-16] MEDS: Isosorbide MONOnitrate (24 HR) 30 MG TAB.ER.24H PO SCH (08:55)
[2021-08-17 06:15] LABS: Hematocrit 34.2 % (37.5-50.1); Hemoglobin 10.6 g/dL (12.9-16.9); Mean Corpuscular Hemoglobin 26.6 pg (28.0-33.3); Mean Corpuscular Volume 85.9 fL (83.0-100.0); Platelet Count 279 K/mcL (140-400); Red Blood Count 3.98 M/mcL (4.19-5.50); Red Cell Distribution Width 15.5 % (11.5-14.5); White Blood Count 10.8 K/mcL (4.3-11.1)
[2021-08-17] MEDS: Amiodarone Premix 360 MG/200 ML BAG IVC SCH ×2 (06:27→17:52)
[2021-08-17 06:34] LABS: Calcium 9.3 mg/dL (8.6-10.3); Potassium 3.9 mEq/L (3.5-5.1)
[2021-08-17] MEDS: Insulin LISPRO 300 UNITS/3 ML VIAL SUBQ SCH ×3 (08:28→16:19)
[2021-08-17] MEDS: Multivit/Ca/Min/Fe/FA 1 TAB TABLET PO SCH (08:29)
[2021-08-17] MEDS: Apixaban 5 MG TABLET PO SCH ×2 (08:29→20:34)
[2021-08-17] MEDS: Isosorbide MONOnitrate (24 HR) 30 MG TAB.ER.24H PO SCH (08:29)
[2021-08-17] MEDS: Lactobacillus 1 EACH CAP.SPRINK PO SCH (08:29)
[2021-08-18 01:22] LABS: Hematocrit 35.7 % (37.5-50.1); Hemoglobin 10.8 g/dL (12.9-16.9); Mean Corpuscular HGB Conc 30.3 g/dL (31.6-35.5); Mean Corpuscular Hemoglobin 25.8 pg (28.0-33.3); Mean Corpuscular Volume 85.4 fL (83.0-100.0); Mean Platelet Volume 11.5 fL (9.4-12.4); Platelet Count 289 K/mcL (140-400); Red Blood Count 4.18 M/mcL (4.19-5.50); Red Cell Distribution Width 15.5 % (11.5-14.5); White Blood Count 12.5 K/mcL (4.3-11.1)
[2021-08-18 01:43] LABS: Calcium 9.3 mg/dL (8.6-10.3); Potassium 3.6 mEq/L (3.5-5.1)
[2021-08-18] MEDS: Amiodarone Premix 360 MG/200 ML BAG IVC SCH (05:53)
[2021-08-18] MEDS: Insulin LISPRO 300 UNITS/3 ML VIAL SUBQ SCH ×3 (08:08→16:35)
[2021-08-18] MEDS: Lactobacillus 1 EACH CAP.SPRINK PO SCH (08:09)
[2021-08-18] MEDS: Isosorbide MONOnitrate (24 HR) 30 MG TAB.ER.24H PO SCH (08:09)
[2021-08-18] MEDS: Apixaban 5 MG TABLET PO SCH ×2 (08:09→20:08)
[2021-08-18] MEDS: Multivit/Ca/Min/Fe/FA 1 TAB TABLET PO SCH (08:09)
[2021-08-18] MEDS: Furosemide 40 MG TABLET PO SCH (17:00)
[2021-08-18] MEDS: Metoprolol XL (24 HR) Succ 50 MG TAB.ER.24H PO SCH (20:08)
[2021-08-19 05:42] LABS: Hemoglobin 10.6 g/dL (12.9-16.9); Red Blood Count 3.99 M/mcL (4.19-5.50); White Blood Count 13.2 K/mcL (4.3-11.1)
[2021-08-19 05:43] LABS: Hematocrit 33.9 % (37.5-50.1); Mean Corpuscular HGB Conc 31.3 g/dL (31.6-35.5); Mean Corpuscular Hemoglobin 26.6 pg (28.0-33.3); Mean Platelet Volume 11.8 fL (9.4-12.4); Platelet Count 250 K/mcL (140-400); Red Cell Distribution Width 15.4 % (11.5-14.5)
[2021-08-19 06:09] LABS: Calcium 9.5 mg/dL (8.6-10.3); Potassium 3.5 mEq/L (3.5-5.1)
[2021-08-19] MEDS: Insulin LISPRO 300 UNITS/3 ML VIAL SUBQ SCH ×3 (07:23→17:30)
[2021-08-19] MEDS: Lactobacillus 1 EACH CAP.SPRINK PO SCH (08:11)
[2021-08-19] MEDS: Multivit/Ca/Min/Fe/FA 1 TAB TABLET PO SCH (08:11)
[2021-08-19] MEDS: Isosorbide MONOnitrate (24 HR) 30 MG TAB.ER.24H PO SCH (08:11)
[2021-08-19] MEDS: Furosemide 40 MG TABLET PO SCH ×2 (08:11→11:04)
[2021-08-19] MEDS: Apixaban 5 MG TABLET PO SCH ×2 (08:11→21:38)
[2021-08-19] MEDS: Metoprolol XL (24 HR) Succ 50 MG TAB.ER.24H PO SCH ×2 (08:11→21:40)
[2021-08-19] MEDS ORDERED: metOLazone 2.5 MG TABLET PO SCH (09:00)
[2021-08-19] MEDS: Acyclovir 200 MG CAPSULE PO SCH (21:36)
[2021-08-20 02:11] LABS: Hematocrit 32.2 % (37.5-50.1); Mean Corpuscular HGB Conc 31.1 g/dL (31.6-35.5); Mean Corpuscular Hemoglobin 26.2 pg (28.0-33.3); Mean Corpuscular Volume 84.3 fL (83.0-100.0); Mean Platelet Volume 11.9 fL (9.4-12.4); Platelet Count 235 K/mcL (140-400); Red Blood Count 3.82 M/mcL (4.19-5.50); Red Cell Distribution Width 15.3 % (11.5-14.5)
[2021-08-20 04:44] LABS: Calcium 9.1 mg/dL (8.6-10.3); Potassium 3.4 mEq/L (3.5-5.1)
[2021-08-20] MEDS: Insulin LISPRO 300 UNITS/3 ML VIAL SUBQ SCH ×3 (07:43→17:40)
[2021-08-20] MEDS: Multivit/Ca/Min/Fe/FA 1 TAB TABLET PO SCH (09:25)
[2021-08-20] MEDS: Acyclovir 200 MG CAPSULE PO SCH ×2 (09:25→20:42)
[2021-08-20] MEDS: Lactobacillus 1 EACH CAP.SPRINK PO SCH (09:26)
[2021-08-20] MEDS: Metoprolol XL (24 HR) Succ 50 MG TAB.ER.24H PO SCH (09:26)
[2021-08-20] MEDS: Furosemide 40 MG TABLET PO SCH (09:26)
[2021-08-20] MEDS: Apixaban 5 MG TABLET PO SCH ×2 (09:26→20:42)
[2021-08-20] MEDS: Isosorbide MONOnitrate (24 HR) 30 MG TAB.ER.24H PO SCH (09:26)
[2021-08-20] MEDS ORDERED: 0.9 % Sodium Chloride 500 ML IVC ONE (13:11)
[2021-08-20] MEDS: *HR* FentaNYL (PF) 100 MCG/2 ML VIAL IVP PRN ×2 (13:40→13:44)
[2021-08-20] MEDS: *HR* Midazolam HCl 5 MG/5 ML VIAL IVP PRN ×2 (13:40→13:44)
[2021-08-20] MEDS: Acetaminophen 325 MG TABLET PO PRN (15:08)
[2021-08-20] MEDS: Levalbuterol Neb 0.63 MG/3 ML IH SCH ×2 (16:11→20:21)
[2021-08-20] MEDS ORDERED: Metoprolol XL (24 HR) Succ 50 MG TAB.ER.24H PO ONE (20:45)
[2021-08-20] MEDS ORDERED: Metoprolol XL (24 HR) Succ 50 MG TAB.ER.24H PO SCH (21:00)
[2021-08-21 06:32] VITALS: BP 134/75; PULSE 66; TEMP 97.9
[2021-08-21] MEDS: Levalbuterol Neb 0.63 MG/3 ML IH SCH (07:25)
[2021-08-21 07:27] VITALS: O2SAT 98
[2021-08-21] MEDS: Insulin LISPRO 300 UNITS/3 ML VIAL SUBQ SCH (07:53)
[2021-08-21] MEDS: Apixaban 5 MG TABLET PO SCH (08:05)
[2021-08-21] MEDS: Lactobacillus 1 EACH CAP.SPRINK PO SCH (08:05)
[2021-08-21] MEDS: Multivit/Ca/Min/Fe/FA 1 TAB TABLET PO SCH (08:06)
[2021-08-21] MEDS: Furosemide 40 MG TABLET PO SCH (08:06)
[2021-08-21] MEDS: Isosorbide MONOnitrate (24 HR) 30 MG TAB.ER.24H PO SCH (08:06)
[2021-08-21] MEDS: Acyclovir 200 MG CAPSULE PO SCH (08:06)
[2021-08-21] MEDS ORDERED: Metoprolol XL (24 HR) Succ 50 MG TAB.ER.24H PO SCH (09:00)
== END 2021-08-21 09:42 | disposition home or self-care (01) | DRG 683 ==
LOC: EMEROOARM 21:23 → 2ANU 21:23 → SUATTDRO 23:44 → 2ANU 08-14 00:23 → ICNU 08-14 04:21 → 2NNU 08-15 05:18 → 2NENU 08-18 22:25
PROVIDERS: ADMIT Internal Medicine; ATTEND Family Medicine